=== PATIENT | female | born 1955 | race Hispanic/Latino ===

== ENCOUNTER 2022-03-24 05:27 | Emergency (ER) | payer BC ==
[~2022-03-24] VITALS: Ht 157.5 cm; Wt 82.1 kg
[2022-03-24] MEDS ORDERED: CLONIDINE HCL 0.2 MG TABLET PO ONE ×2 (05:39→06:00)
[2022-03-24 06:16] VITALS: BP 158/79
== END 2022-03-24 06:26 | disposition home or self-care (01) ==
LOC: EDH 05:27
DX: B34.9 Viral infection, unspecified (principal); Z20.822 Contact with and (suspected) exposure to COVID-19; I10 Essential (primary) hypertension; E05.90 Thyrotoxicosis, unspecified without thyrotoxic crisis or storm; Z98.890 Other specified postprocedural states
CPT/HCPCS: 99283; 87635; 87880; 87804 ×2; C9803

== ENCOUNTER 2024-08-24 07:17 | Emergency (ER) | payer OTHER, MEDICARE ==
[~2024-08-24] VITALS: Ht 157.5 cm; Wt 80.7 kg
--- NOTE | 2024-08-24 07:56 | ERN ---
ED Note History of Present Illness Stated Complaint: RT HAND Chief Complaint: Hand Problem/Injury Time Seen by MD: 07:29 Dictation: 69-year-old female came to the ER after sustaining a fall, she fall forward , during the fall patient fell over right hand and right knee. Patient is able to move all extremities but is feeling lot of pain Allergies: Coded Allergies: No Known Drug Allergies (Unverified Allergy, Unknown, 03/24/22) Past Medical History Past Medical History: Hypertension, Hyperthyroid Surgical History: Hysterectomy Social History: Negative Review of System Dictation NEGATIVE EXCEPT PER HPI Constitutional: Negative for fever,chills, and weight loss Eyes: Negative for injury, pain,redness, and discharge ENT: Negative for injury,pain or swelling Cardiovascular: denies chest pain, palpitations, and edema Respiratory: Negative for shortness of breath, cough, and wheezing, Abdomen/GI: Negative for abdominal pain, nausea, vomiting, diarrhea, and constipation Back: Negative for injury and pain : Negative for injury, bleeding and discharge MS/Extremity: Right hand and right knee pain Skin: Negative for rash, and discoloration Neuro: Negative for headache, weakness, numbness, tingling, and seizure Psych: Negative for suicide ideation, homicidal ideation, and hallucinations Initial Vital Sign VS Vital Signs Date Time Temp Pulse Resp B/P (MAP) Pulse Ox O2 Delivery O2 Flow Rate FiO2 08/24/24 07:19 97.5 81 20 193/100 99 Room Air 08/24/24 08:05 0 21 Physical Exam Dictation General: awake, alert, NAD Head/Face: Normocephalic, atraumatic Eyes: PERRL, EOMI, vision at baseline ENT: oral cavity clear, TMs clear, no signs of infection Neck: Trachea midline, supple, no nuchal rigidity Cardiovascular: RRR, normal S1/S2, No MRGs, no JVD Respiratory: CTAB, no respiratory distress, No rales or wheezes Abdomen: Soft , no tender Skin: Warm, dry, normal turgor, no rash MS/Extremity: Decreased range of motion of right hand due to pain Neuro: COAx4, GCS 15, strength 5/5, CN 2-12 intact, normal cerebellar exam, normal gait, Psych: Normal behavior, mood, and affect normal ED Course ED Course Orders Procedure Category Date Status Time Ibuprofen 600 Mg PHA 08/24/24 Complete Tablet (Motrin) 08:00 Acetaminophen 500mg PHA 08/24/24 Complete Tab (Tylenol 500mg T 08:00 Hand 3+Vws Rt RAD 08/24/24 Resulted 07:50 Wrist 2vws Rt RAD 08/24/24 Resulted 07:50 Knee/Patella 1-2vws Rt RAD 08/24/24 Resulted 07:50 Hydralazine 25mg Tab PHA 08/24/24 In Process ([id number] Tab 08:30 Current Medications Medications (Trade) Dose Ordered Sig/[employer] Route PRN Reason Start Time Stop Time Status Last Admin Dose Admin Acetaminophen (TYLenol 500MG TAB) 500 mg ONCE ONCE PO 08/24/24 08:00 08/24/24 08:01 DC 08/24/24 08:03 Hydralazine HCl ([id number] TAB) 50 mg ONCE PO 08/24/24 08:30 09/23/24 08:29 08/24/24 08:21 Ibuprofen (moTRIN) 600 mg ONCE ONCE PO 08/24/24 08:00 08/24/24 08:01 DC 08/24/24 08:02 Vital Signs Date Time Temp Pulse Resp B/P (MAP) Pulse Ox O2 Delivery O2 Flow Rate FiO2 08/24/24 08:53 97.5 62 18 159/66 99 Room Air* 0 21 08/24/24 08:05 62 18 208/96 99 Room Air* 0 21 08/24/24 07:19 97.5 81 20 193/100 99 Room Air Medical Decision Making [facility] [place] [age] female status post fall, complaining of right hand and right knee pain. Hand/wrist fracture Hand/wrist strain Right knee fracture Right knee contusion X-ray of affected area was ordered Pain medication given. X ray within normal limits. Apply imobilizer to the affected wrist right side. Pain medication. DX & DISP Disposition: Discharge Departure Impression: Primary Impression: Fall Additional Impressions: Hand pain, right, Wrist pain, right Condition: Stable Scripts Cyclobenzaprine HCl (Cyclobenzaprine HCl) 7.5 Mg Tablet 1 TAB PO TID for spasm for 3 Days, #9 TAB 0 Refills Prov: GARETH MOSLEY MD 08/24/24 Acetaminophen (Tylenol) 500 Mg Tab 1 TAB PO Q6HPRN PRN for pain or fever for 15 Days, #60 TAB 0 Refills Prov: GARETH MOSLEY MD 08/24/24 Ibuprofen (Ibuprofen) 600 Mg Tablet 1 TAB PO TID for pain for 10 Days, #30 TAB 0 Refills with food Prov: GARETH MOSLEY MD 08/24/24 Referrals: SELF,REFERRAL (PCP) GARETH MOSLEY MD Aug 24, 2024 07:56
[2024-08-24] MEDS: ibuPROFEN 600 MG TABLET PO ONE (08:02)
[2024-08-24] MEDS: acetaMINOPHEN 500 MG TABLET PO ONE (08:03)
[2024-08-24] MEDS: hydrALAZine 25MG TABLET PO SCH (08:21)
--- NOTE | 2024-08-24 08:42 | HMCIMG ---
RIGHT KNEE RADIOGRAPHS - 2 VIEWS INDICATION: Pain COMPARISON: None FINDINGS: AP, lateral views. No acute fracture or dislocation identified. No significant joint effusion is present. Overlying soft tissues appear normal. IMPRESSION: No evidence for fracture or dislocation.
--- NOTE | 2024-08-24 08:47 | HMCIMG ---
RIGHT HAND RADIOGRAPHS - 3 VIEWS RIGHT WRIST RADIOGRAPHS-2 VIEWS INDICATION: Pain COMPARISON: None FINDINGS: AP, lateral, and oblique views. No acute fracture of subluxation identified. Scaphoid bone is intact. Subcentimeter accessory ossicle near the ulnar styloid process tip. 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 Mild first carpometacarpal joint osteoarthropathy. Carpal alignment and ulnar variance is within normal limits. No radiopaque foreign body noted. IMPRESSION: No evidence for fracture or subluxation.
[2024-08-24 08:53] VITALS: TEMP 97.5
[2024-08-24] MEDS ORDERED: ACET-66 PO (09:04)
[2024-08-24] MEDS ORDERED: CYCL7.5T27 PO (09:04)
[2024-08-24] MEDS ORDERED: IBUP-2070 PO (09:04)
[2024-08-24 09:31] VITALS: BP 188/83; PULSE 74; RESP 17; O2SAT 98
== END 2024-08-24 09:36 | disposition home or self-care (01) ==
LOC: EDH 07:17
DX: M79.641 Pain in right hand (principal); M25.531 Pain in right wrist; I10 Essential (primary) hypertension; E03.9 Hypothyroidism, unspecified; Z90.710 Acquired absence of both cervix and uterus; W18.39XA Other fall on same level, initial encounter; Y93.89 Activity, other specified; Y92.89 Other specified places as the place of occurrence of the external cause; Y99.8 Other external cause status
CPT/HCPCS: 73100; 73130; 73560; 99284